=== PATIENT | female | born 1985 | race African-American/Black ===

== ENCOUNTER 2016-08-12 03:13 | Emergency (ER) | payer OTHER ==
[~2016-08-12] VITALS: Ht 167.6 cm; Wt 89.9 kg
[~2016-08-12 03:13] MED LIST: PRENATAL TABLE1 EAC3 PO
[2016-08-12 04:18] LABS: HEMATOCRIT 36.6 % (36.0-46.0); MCH 29.7 PG (29.0-34.0); MCHC 32.2 G/DL (30.0-36.0); MCV 92.2 FL (83-99); MEAN PLAT.VOLUME 11.1 uM^3 (9.5-12.4); PLATELET COUNT 215 K/uL (156-360); RBC DIS.WIDTH-CV 13.4 % (11.8-14.6); RBC DIS.WIDTH-SD 45.5 % (39-53); RED BLOOD COUNT 3.97 M/uL (3.80-5.20); WHITE BLOOD COUNT 6.3 K/uL (4.1-10.2)
[2016-08-12 04:28] LABS: CHLORIDE 108 mEq/L (99-109); SODIUM 138 mEq/L (136-147)
[2016-08-12 04:30] LABS: GLUCOSE 80 mg/dL (70-99)
[2016-08-12 04:31] LABS: ANION GAP 8 MEQ/L (2-14)
[2016-08-12 04:33] LABS: GFR ESTIMATE (CALCULATED) > 59 mL/min/
[2016-08-12 04:34] LABS: UREA NITROGEN (BUN) 17 mg/dL (9-23)
[2016-08-12 04:38] LABS: TROP-I INTERPRETATION NEGATIVE; TROPONIN-I < 0.01 ng/mL (0.0-0.30)
[2016-08-12 04:41] LABS: QUANTITATIVE HCG < 4.0 MIU/ML
[2016-08-12 05:07] VITALS: BP 111/80
== END 2016-08-12 05:09 | disposition home or self-care (01) ==
LOC: EME 03:13
PROVIDERS: Emergency Medicine
DX: Z04.2 Encounter for examination and observation following work accident (principal); Z04.71 Encounter for examination and observation following alleged adult physical abuse; R00.2 Palpitations
CPT/HCPCS: 71010; 80048; 84484; 84702; 85027; 93005; 99281; 99284